=== PATIENT | male | born 1980 | race Caucasian/White ===

== ENCOUNTER 2020-11-03 17:00 | Emergency (ER) | payer MEDICARE, OTHER ==
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
[2020-11-03] MEDS ORDERED: Dextrose 5%-0.9% NaCl 1,000 ML IV SCH (17:30)
[2020-11-03] MEDS ORDERED: Acetaminophen 325 MG Tab ONE (19:19)
[2020-11-03] MEDS ORDERED: Acetaminophen 325 MG Tab PO ONE (19:21)
--- NOTE | 2020-11-04 07:22 | CT ---
Head CT Technique: Multiple axial sections through the brain were obtained. Intravenous contrast was not utilized. Reconstructed coronal and sagittal images were obtained. Comparison: No prior intracranial imaging is available. Findings: Encephalomalacia is identified on the left side within the left frontal, temporal and parietal regions. This area of encephalomalacia causes ex vacuo enlargement of the left lateral ventricle. Right lateral ventricle is also enlarged. Sulci over the convexities are within normal limits for the patient's age. No other abnormal parenchymal densities are seen. No evidence of intracranial hemorrhage. No midline shift or mass-effect is appreciated. Bone window settings were reviewed. Visualized paranasal sinuses and mastoid sinuses show nothing acute. Previous craniotomy on the left side is seen. No acute calvarial abnormality is appreciated. Impression: 1. Encephalomalacia causing ex vacuo enlargement of the left lateral ventricle. Additional enlargement of the right lateral ventricle is noted. These findings are chronic. 2. Prior left-sided craniotomy is noted. 3. No acute intracranial abnormality is appreciated. Diagnostic code #2 I agree with preliminary report from [facility], finalized on 11/03/20, 7:24 PM CDT, code 1
== END 2020-11-03 19:50 | disposition home or self-care (01) ==
LOC: JD.ED 17:00
DX: G40.909 Epilepsy, unspecified, not intractable, without status epilepticus (principal); I10 Essential (primary) hypertension
CPT/HCPCS: 36415; 70450; 80053; 80306; 80307; 82550; 83605; 83735; 85025; 85610; 85730; 93005; 99285; A9270; J7042; 93010; 99284